=== PATIENT | female | born 1935 | race Caucasian/White ===

== ENCOUNTER 2018-12-23 08:57 | Day surgery (SDC) | payer MEDICARE ==
[~2018-12-23] VITALS: Ht 167.6 cm; Wt 69.5 kg
[~2018-12-23 08:57] MED LIST: ACET325T14 PO; ALTERIL PO; AMLO-150 PO; AMLO10TA8 PO; CEPH-368 PO; CYCL-259 PO; DESM0.2T2 PO; DIPH50CA62 PO; ENAL20TA PO; HYDR-3245 PO; LEVO100T5 PO; LEVO112T4 PO; METO50TA4 PO; MIRT15TA4 PO; OMEP-110 PO; PRAV80TA2 PO
[2018-12-23] MEDS ORDERED: LACTATED RINGERS 1,000 ML IV SCH (09:57)
[2018-12-23 09:58] VITALS: BP 131/81
[2018-12-23] MEDS ORDERED: LIDOCAINE-MPF 1%, 2ML INFIL ONE (10:00)
[2018-12-23 10:16] LABS: INTERNATIONAL NORMALIZED RATIO 1.13 (0.93-1.1); PROTHROMBIN TIME 11.9 Seconds (9.6-11.5)
[2018-12-23] MEDS ORDERED: HEPARIN 5,000 UNITS/ML, 1ML ONE (10:28)
[2018-12-23] MEDS ORDERED: BUPIVACAINE/PF 0.25% ONE (10:28)
[2018-12-23] MEDS ORDERED: EPINEPHRINE 1 MG/ML, 1ML ONE (10:28)
[2018-12-23] MEDS ORDERED: INDOCYANINE GREEN 25 MG VIAL ONE (10:28)
[2018-12-23] MEDS ORDERED: MIDAZOLAM 1 MG/ML, 2ML ONE (10:41)
[2018-12-23] MEDS ORDERED: FENTANYL PF 100 MCG/2ML ONE ×3 (10:41→13:30)
[2018-12-23] MEDS ORDERED: ROCURONIUM 10MG/ML,5ML ONE (11:10)
[2018-12-23] MEDS ORDERED: ONDANSETRON 2MG/ML, 2ML ONE (11:10)
[2018-12-23] MEDS ORDERED: DEXAMETHASONE 4 MG/ML, 1ML ONE (11:10)
[2018-12-23] MEDS ORDERED: CEFAZOLIN 1,000 MG ONE (11:10)
[2018-12-23] MEDS ORDERED: LIDOCAINE 2% 100MG/5ML SYRINGE ONE (11:10)
[2018-12-23] MEDS ORDERED: PROPOFOL 10 MG/ML, 20ML ONE (11:10)
[2018-12-23] MEDS ORDERED: NEOSTIGMINE 1 MG/ML, 10ML ONE (11:10)
[2018-12-23] MEDS ORDERED: SUCCINYLCHOLINE 20 MG/ML, 10ML ONE (11:10)
[2018-12-23] MEDS ORDERED: EPHEDRINE 50 MG/ML, 1ML ONE (11:10)
[2018-12-23] MEDS ORDERED: GLYCOPYRROLATE 0.2MG/1ML, 5ML ONE (11:10)
[2018-12-23] MEDS ORDERED: OXYcodone 5 MG/5 ML ORAL.SOL UDC PO PRN (12:00)
[2018-12-23] MEDS ORDERED: hydrALAzine 20 MG/ML, 1ML IV PRN (12:00)
[2018-12-23] MEDS ORDERED: LABETALOL 5MG/ML, 20ML IV PRN (12:00)
[2018-12-23] MEDS ORDERED: ACETAMINOPHEN 325 MG TABLET PO PRN (12:00)
[2018-12-23] MEDS ORDERED: HYDROmorphone 2 MG/ML, 1ML IVPush PRN (12:00)
[2018-12-23] MEDS ORDERED: MORPHINE SULFATE 4 MG/ML, 1ML IVPush PRN (12:00)
[2018-12-23] MEDS ORDERED: LORazepam 2 MG/ML, 1ML IVPush PRN (12:00)
[2018-12-23] MEDS ORDERED: MEPERIDINE/PF 25MG/0.5ML IVPush PRN (12:00)
[2018-12-23] MEDS ORDERED: METOCLOPRAMIDE 5 MG/ML, 2ML IV PRN (12:00)
[2018-12-23] MEDS ORDERED: OXYcodone 5 MG/5 ML ORAL.SOL UDC ONE (13:30)
[2018-12-23] MEDS: FENTANYL PF 100 MCG/2ML IV PRN ×2 (13:43→13:58)
== END 2018-12-23 18:45 | disposition home or self-care (01) ==
LOC: OUT 08:57
PROVIDERS: ATTEND Specialist
DX: D27.0 Benign neoplasm of right ovary (principal); N83.8 Other noninflammatory disorders of ovary, fallopian tube and broad ligament; N81.10 Cystocele, unspecified; N95.2 Postmenopausal atrophic vaginitis; I10 Essential (primary) hypertension; K21.9 Gastro-esophageal reflux disease without esophagitis; Z87.891 Personal history of nicotine dependence; Z87.39 Personal history of other diseases of the musculoskeletal system and connective tissue; Z85.820 Personal history of malignant melanoma of skin; Z85.850 Personal history of malignant neoplasm of thyroid; Z86.79 Personal history of other diseases of the circulatory system; Z79.01 Long term (current) use of anticoagulants
CPT/HCPCS: 36415; 57106; 57120; 58661; 85610; 85730; 86850; 86900; 86923; 88112; 88302; 88305; 88307; J0171; J0330; J0690; J1100; J1644; J2250; J2405; J2704; J2710; J3010; J3490; J7120